=== PATIENT | female | born 1945 | race Hispanic/Latino ===

== ENCOUNTER → 2023-06-20 | Outpatient (CLI) | payer OTHER, MEDICARE ==
[~2023-06-20] MED LIST: IOHEXOL-350 75 ML VIAL IV ONE
== END | disposition home or self-care (01) ==
LOC: RAH 12:22
PROVIDERS: ATTEND Internal Medicine
DX: D25.9 Leiomyoma of uterus, unspecified (principal); N95.0 Postmenopausal bleeding; M54.50 Low back pain, unspecified; J84.10 Pulmonary fibrosis, unspecified; M47.815 Spondylosis without myelopathy or radiculopathy, thoracolumbar region; I25.10 Atherosclerotic heart disease of native coronary artery without angina pectoris; K57.90 Diverticulosis of intestine, part unspecified, without perforation or abscess without bleeding; I70.0 Atherosclerosis of aorta
CPT/HCPCS: 74178; Q9967

== ENCOUNTER → 2023-06-27 | Outpatient (CLI) | payer OTHER, MEDICARE | END | disposition home or self-care (01) | LOC: RAH 11:09 | PROVIDERS: ATTEND Internal Medicine | DX: R22.42 Localized swelling, mass and lump, left lower limb (principal) | CPT/HCPCS: 76882; 93971 ==

== ENCOUNTER → 2024-04-09 | Outpatient (CLI) | payer OTHER ==
--- NOTE | 2024-04-09 12:00 | HMCIMG ---
US SOFT TISSUE CHEST WALL REASON: CHEST WALL PAIN. COMPARISON: None TECHNIQUE: Left chest wall ultrasound study was performed. FINDINGS: There is a lymph node in the left upper chest measuring 7 x 4 x 6 mm. Scar formation is also seen in the left chest. IMPRESSION: There is a lymph node in the left upper chest measuring 7 x 4 x 6 mm. Scar formation is also seen in the left chest.
== END | disposition home or self-care (01) ==
LOC: RAH 08:50
PROVIDERS: ATTEND Internal Medicine
DX: R91.1 Solitary pulmonary nodule (principal); R07.89 Other chest pain; Z90.12 Acquired absence of left breast and nipple
CPT/HCPCS: 76604

== ENCOUNTER → 2025-04-14 | Outpatient (CLI) | payer OTHER, MEDICARE ==
--- NOTE | 2025-04-14 09:29 | HMCIMG ---
CLINICAL INDICATION: Asymptomatic menopausal state COMPARISON: None TECHNIQUE: Bone densitometry is performed of the lumbar spine and left hip. FINDINGS: Total BMD of lumbar spine is 1.130 g/cm2 with a T-score of 0.8 and Z-score is 3.3. Total BMD of left hip is 0.844 g/cm2 with a T-score of -0.9 and Z-score is 1.1. FRAX SCORE: The 10 year fracture risk for a major osteoporotic fracture and hip fracture nature osteoporotic fracture 8.2% since and hip fracture 2.1% IMPRESSION: 1. Normal lumbar spine 2. Osteopenia of left hip. Recommend follow-up in 13 months. World Health Organization criteria for BMD interpretation classify patients as Normal (T-score at or above -1.0), Osteopenic (T-score between -1.0 and -2.5), or Osteoporotic (T-score at or below -2.5). FRAX SCORE: A. All treatment decisions require clinical judgment and consideration of individual patient factors, including patient preferences, comorbidities, previous drug use, risk factors not captured in the FRAX model (e.g., frailty, falls, vitamin D deficiency, increased bone turnover, interval significant decline in bone density) and possible [id number]-estimation of fracture risk by FRAX. B. In addition, the NOF Guide recommends that FDA-approved medical therapies be considered in postmenopausal women and men age greater than or equal to 50 years with a: i. Hip or vertebral (clinical or morphometric) fracture. ii. T-score of less than or equal to -2.5 at the spine or hip. iii. Ten-year fracture probability by FRAX of greater than or equal to 3% for hip fracture of greater than or equal to 20% for major osteoporotic fracture.
== END | disposition home or self-care (01) ==
LOC: RAH 08:40
PROVIDERS: ATTEND Internal Medicine
DX: M85.88 Other specified disorders of bone density and structure, other site (principal); Z78.0 Asymptomatic menopausal state
CPT/HCPCS: 77080